=== PATIENT | male | born 1955 | race Two or more races ===

== ENCOUNTER 2020-02-16 10:15 | Inpatient (IN) | payer OTHER ==
[~2020-02-16] VITALS: Ht 177.8 cm; Wt 88.5 kg
[2020-02-16] MEDS ORDERED: ASPIR 8181 MG PO (14:00)
[2020-02-16] MEDS ORDERED: LOSARTAN POTASS25 MG PO (14:00)
== END 2020-02-23 10:09 | disposition home or self-care (01) | DRG 708 ==
LOC: ADM 10:15 → EDSTATUS 10:15 → SURH 02-21 06:10 → O/R 02-21 06:10 → SURH 02-21 07:00
PROVIDERS: ADMIT Urology
PROC: 07BC0ZX Excision of Pelvis Lymphatic, Open Approach, Diagnostic (ICD-10-PCS; 2020-02-21)
PROC: 0VT00ZZ Resection of Prostate, Open Approach (ICD-10-PCS; principal; 2020-02-21 07:00)
DX: C61 Malignant neoplasm of prostate (principal); R97.21 Rising PSA following treatment for malignant neoplasm of prostate; I10 Essential (primary) hypertension